=== PATIENT | female | born 1950 | race Caucasian/White ===

== ENCOUNTER 2021-07-18 13:53 | Emergency (ER) | payer MEDICARE, OTHER ==
[~2021-07-18] VITALS: Ht 157.5 cm; Wt 103.0 kg
[2021-07-18 13:59] VITALS: BP 135/59
[2021-07-18] MEDS ORDERED: CETI1SOL17 PO (14:18)
[2021-07-18] MEDS ORDERED: PRED20TA3 PO (14:18)
[2021-07-18] MEDS ORDERED: FAMO-136 PO (14:18)
[2021-07-18] MEDS ORDERED: FAMOTIDINE 20MG TAB PO ONE (14:30)
[2021-07-18] MEDS ORDERED: DEXAMETHASONE 4 MG TAB PO SCH (14:30)
== END 2021-07-18 14:42 | disposition home or self-care (01) ==
LOC: EDH 13:53
DX: L50.9 Urticaria, unspecified (principal); E78.00 Pure hypercholesterolemia, unspecified; I10 Essential (primary) hypertension; E66.9 Obesity, unspecified; Z79.52 Long term (current) use of systemic steroids; Z88.0 Allergy status to penicillin; Z68.41 Body mass index [BMI] 40.0-44.9, adult
CPT/HCPCS: 99283; J8540

== ENCOUNTER 2022-05-16 04:35 | Emergency (ER) | payer OTHER ==
[~2022-05-16] VITALS: Ht 157.5 cm; Wt 106.1 kg
[~2022-05-16 04:35] MED LIST: CETI1SOL17 PO; FAMO-136 PO; PRED20TA3 PO
[2022-05-16] MEDS ORDERED: IPRATROPIUM 0.5 MG/2.5 ML INH IH ONE ×3 (04:52→07:30)
[2022-05-16] MEDS ORDERED: ALBUTEROL 0.083% 2.5 MG/3 ML INH IH ONE ×3 (04:52→07:30)
[2022-05-16 04:59] LABS: BASOPHILS % (AUTO) 0.5 % (0.0-5.0); EOSINOPHILS % (AUTO) 7.1 % (0.0-8.0); HEMATOCRIT 39.2 % (36-48); LYMPHOCYTES % (AUTO) 18.9 % (21.0-51.0); MEAN CORPUSCULAR HGB CONC 33.2 g/dL (32.0-36.0); MEAN CORPUSCULAR VOLUME 87.3 fL (79-99); MONOCYTES % (AUTO) 6.6 % (3.0-13.0); NEUTROPHILS % (AUTO) 66.4 % (40.0-77.0); PLATELET COUNT (AUTO) 314 K/uL (130-400); RED BLOOD CELL COUNT(AUTO) 4.49 MIL/uL (4.00-5.50); RED CELL DISTRIBUTION WIDTH 13.9 % (11.0-15.5); WHITE BLOOD COUNT (AUTO) 12.9 K/uL (4.8-10.8)
[2022-05-16 05:20] LABS: ALBUMIN 3.4 g/dL (3.5-5.0); CREATININE 0.7 mg/dL (0.5-1.5); POTASSIUM 3.4 mmol/L (3.5-5.1); TOTAL PROTEIN, SERUM 7.2 g/dL (6.0-8.3)
[2022-05-16] MEDS ORDERED: DEXAMETHASONE SOD PHOSPHATE 4 MG/ML 1ML VIAL IVP ONE (05:30)
[2022-05-16] MEDS ORDERED: ALBU90AE2 IH (07:03)
[2022-05-16] MEDS ORDERED: METH4TAB3 PO (07:03)
[2022-05-16] MEDS ORDERED: IPRAHFA IH (07:03)
[2022-05-16 07:47] VITALS: BP 140/83
== END 2022-05-16 07:50 | disposition home or self-care (01) ==
LOC: EDH 04:35
DX: J44.1 Chronic obstructive pulmonary disease with (acute) exacerbation (principal); E78.00 Pure hypercholesterolemia, unspecified; I10 Essential (primary) hypertension; Z79.52 Long term (current) use of systemic steroids; Z20.822 Contact with and (suspected) exposure to COVID-19; Z88.0 Allergy status to penicillin
CPT/HCPCS: 99285; 96374; 71045; 87635; 84484; 80053; 85025; 87804 ×2; 36415; 94640 ×2; J1100; C9803

== ENCOUNTER → 2024-02-25 | Outpatient (CLI) | payer OTHER ==
[~2024-02-25] MED LIST changes: +ALBU90AE3 IH; +IPRAHFA IH; +METH4TAB3 PO
--- NOTE | 2024-02-25 13:40 | NUR ---
MBSS COMPLETED (OUTPATIENT). Deep non-transient penetrations before the swallow with thin liquids via cup sips with no cough response. Recommend regular solids, nectar thick liquids and pills whole with liquids as tolerated. Compensatory strategies: 1. sit upright during oral intake 2. small bites/sips 3. slow oral intake 4. extra dry swallows ICE CREAM DISPENSER reviewed results and recommendations with patient. ICE CREAM DISPENSER educated patient on risks and consequences of aspiration. Speech therapy warranted at this time as outpatient. ICE CREAM DISPENSER provided patient with a can of thickener and demonstrated how to reach nectar thick liquids. All questions answered. Addendum: 02/25/[address] FINESSE NEW Amended: Links added.
--- NOTE | 2024-02-25 14:41 | HMCIMG ---
MODIFIED BARIUM SWALLOW W CINE REASON: DYSPHAGIA, FEEDING DIFFICULTIES. COMPARISON: None TECHNIQUE: Modified barium swallow study was performed with referring speech therapist. FINDINGS: Please see procedure report by referring speech therapist. IMPRESSION: Modified barium swallow study.
== END | disposition home or self-care (01) ==
LOC: RAH 10:00
PROVIDERS: ATTEND Internal Medicine
DX: R13.12 Dysphagia, oropharyngeal phase (principal); R63.30 Feeding difficulties, unspecified
CPT/HCPCS: 74230; 92611

== ENCOUNTER 2024-05-12 12:43 | Emergency (ER) | payer OTHER ==
[~2024-05-12] VITALS: Ht 157.5 cm; Wt 97.1 kg
[~2024-05-12 12:43] MED LIST changes: +AMLO-258 PO; +ASPI-1443 PO; +BUDE0.5A3 IH; +CALC1CAP22 PO; +CARV12.511 PO; -CETI1SOL17 PO; +HYDR12.54 PO; +IPRA3AMP24 IH; +LOSA50TA64 PO; +LURA40TA2 PO; -METH4TAB3 PO; -PRED20TA3 PO; +ROSU10TA72 PO; +TRAZ-187 PO
[2024-05-12] MEDS ORDERED: CALCIUM GLUC 1GM/10ML VIAL IV PRN (13:00)
[2024-05-12] MEDS: 0.9%NACL 1000ML 1,000 ML IV ONE (13:12)
--- NOTE | 2024-05-12 13:20 | EKG ---
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
--- NOTE | 2024-05-12 13:42 | ERN ---
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 Patient reports dizziness, weakness, but denies any other associated symptoms at this time. Patient believes she might have double dosed on her blood pressure medications this morning [facility]. Patient does not recall the name of the blood pressure medica tions. 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 Allergies: Coded Allergies: Penicillins (Unverified Allergy, Unknown, 07/18/21) Home Meds Active Scripts Ipratropium/Albuterol Sulfate (Iprat-Albut 0.5-3(2.5) mg/3 ml) 0.5 Mg-3 Mg (2.5 Mg Base)/3 Ml Ampul.neb, 0 UDVIAL IH [id number], #60 INH 0 Refills q6h Prov:BECCA WU PAINTING MANAGER 05/05/24 Budesonide (Budesonide) 0.5 Mg/2 Ml Ampul.neb, 0.5 MG IH BIDRESP, #60 INH Prov:BECCA WU PAINTING MANAGER 05/05/24 Ipratropium [place] (Atrovent Hfa) 12.9 Gm Hfa.aer.ad, 200 GM IH TID, #1 INHALER Prov:PETRA DANIELLE MD 05/16/22 Albuterol Sulfate (Proair Digihaler) 90 Mcg Aer.pw.bas, 90 MCG IH TID, #1 INHALER Prov:PETRA DANIELLE MD 05/16/22 Famotidine (Pepcid) 20 Mg Tablet, 20 MG PO BID, #30 TAB Prov:HUMBERTO NOLASCO 07/18/21 Reported Medications Calcium Carbonate/Vitamin D3 (Calcium 600 + Vit D 400 Softgl) 600 Mg Calcium-10 Mcg (400 Unit) Capsule, 1 CAP PO BID for 30 Days, #60 CAP 0 Refills 05/02/24 Trazodone HCl (Trazodone HCl) 100 Mg Tablet, 1 TAB PO HS for 30 Days, #30 TAB 0 Refills 05/02/24 Hydrochlorothiazide (Hydrochlorothiazide) 12.5 Mg Tablet, 1 TAB PO DAILY for 30 Days, #30 TAB 0 Refills 05/02/24 Rosuvastatin Calcium (Rosuvastatin Calcium) 10 Mg Tablet, 20 MG PO HS, TAB 05/02/24 Aspirin (Aspirin EC) 81 Mg Tablet.dr, 81 MG PO DAILY, TAB 05/02/24 Carvedilol (Carvedilol) 12.5 Mg Tablet, 1 TAB PO BID for 30 Days, #60 TAB 0 Refills 05/02/24 Lurasidone HCl (Latuda) 40 Mg Tablet, 1 TAB PO HS for 30 Days, #30 TAB 0 Refills 05/02/24 Losartan Potassium (Losartan Potassium) 50 Mg Tablet, 50 MG PO BID, TAB 05/02/24 Amlodipine Besylate (Amlodipine Besylate) 10 Mg Tablet, 1 TAB PO DAILY for 30 Days, #30 TAB 0 Refills 05/02/24 Past Medical History Past Medical History: COPD, High Cholesterol, Hypertension, Other Additional Past Medical Hx: PTSD Surgical History: Other Surgical History Other: LUMPECTOMY Social History: Negative Review of System Dictation Constitutional: Positive for weakness, hypotension Negative for fever,chills, and weight loss Eyes: Negative for injury, pain,redness, and discharge ENT: Negative for injury,pain or swelling Cardiovascular: Negative for chest pain, palpitations, and edema Respiratory: Negative for shortness of breath, cough, and wheezing, Abdomen/GI: Negative for abdominal pain, nausea, vomiting, diarrhea, and constipation Back: Negative for injury and pain : Negative for injury, bleeding and discharge MS/Extremity: Negative for injury and deformity Skin: Negative for rash, and discoloration Neuro: Positive for dizziness Negative for headache, weakness, numbness, tingling, and seizure Psych: Negative for suicide ideation, homicidal ideation, and hallucinations Initial Vital Sign VS Vital Signs Date Time Temp Pulse Resp B/P (MAP) Pulse Ox O2 Delivery O2 Flow Rate FiO2 05/12/24 12:44 97.7 54 16 91/55 98 Room Air 0 05/12/24 14:01 21 Physical Exam Dictation General: awake, alert, NAD Head/Face: Normocephalic, atraumatic Eyes: PERRL, EOMI, vision at baseline ENT: oral cavity clear, TMs clear, no signs of infection Neck: Trachea midline, supple, no nuchal rigidity Cardiovascular: RRR, normal S1/S2, No MRGs, no JVD Respiratory: CTAB, no respiratory distress, No rales or wheezes Abdomen: Soft, non-tender, non-distended, normal bowel sounds, no guarding or rebound. Skin: Warm, dry, normal turgor, no rash MS/Extremity: Pulses equal, no cyanosis, neurovascular intact, FROM Neuro: COAx4, GCS 15, strength 5/5, CN 2-12 intact, normal cerebellar exam, normal gait, Psych: Normal behavior, mood, and affect normal Results (Laboratory/Radiology) Laboratory/Radiology Laboratory Tests Test 05/12/24 14:13 05/12/24 14:40 Prothrombin Time 10.4 SEC (9.6-11.6) Prothromb Time International Ratio <= 0.93 (0.85-1.15) Activated Partial Thromboplast Time 23.9 SEC (26.3-35.5) L Sodium Level 135 mmol/L (136-145) L Potassium Level 3.6 mmol/L (3.5-5.1) Chloride Level 101 mmol/L (101-111) Carbon Dioxide Level 23 mmol/L (21-32) Blood Urea Nitrogen 28 mg/dL (7-18) H Creatinine 1.2 mg/dL (0.5-1.0) H Glomerular Filtration Rate Calc 48 mL/min (>90) Random Glucose 87 mg/dL (70-105) Lactic Acid Level 2.7 mmol/L (0.8-2.5) H Total Calcium 8.7 mg/dL (8.5-10.1) Total Bilirubin 0.4 mg/dL (0.2-1.0) Direct Bilirubin 0.1 mg/dL (0.0-0.3) Aspartate Amino Transf (AST/SGOT) 16 U/L (10-37) Alanine Aminotransferase (ALT/SGPT) 23 U/L (12-78) Alkaline Phosphatase 62 U/L (50-136) Total Creatine Kinase 36 U/L (21-232) # Troponin I High Sensitivity 7 ng/L (4-50) Total Protein 6.3 g/dL (6.0-8.3) Albumin 2.8 g/dL (3.5-5.0) L White Blood Count 24.5 K/uL (4.8-10.8) H Red Blood Count 4.60 MIL/uL (4.00-5.50) Hemoglobin 13.6 g/dL (12.0-16.0) Hematocrit 42.0 % (36-48) Mean Corpuscular Volume 91.3 fL (79-99) Mean Corpuscular Hemoglobin 29.6 pg (27.0-33.0) Mean Corpuscular Hemoglobin Concent 32.4 g/dL (32.0-36.0) Red Cell Distribution Width 13.2 % (11.0-15.5) Platelet Count 307 K/uL (130-400) Mean Platelet Volume 10.6 fL (7.5-10.5) H Immature Granulocyte % (Auto) 1.3 % (0-1) H Neutrophils (%) (Auto) 66.1 % (40.0-77.0) Lymphocytes (%) (Auto) 22.8 % (21.0-51.0) Monocytes (%) (Auto) 8.5 % (3.0-13.0) Eosinophils (%) (Auto) 1.1 % (0.0-8.0) Basophils (%) (Auto) 0.2 % (0.0-5.0) Neutrophils # (Auto) 16.2 K/uL (1.8-7.7) H Lymphocytes # (Auto) 5.6 K/uL (1.0-4.8) H Monocytes # (Auto) 2.1 K/uL (0.1-1.0) H Eosinophils # (Auto) 0.26 K/uL (0.00-0.70) Basophils # (Auto) 0.05 K/uL (0.00-0.20) Absolute Immature Granulocyte (auto 0.33 K/uL (0-1) Segmented Neutrophils % 57 % (40-70) Band Neutrophils % 1 % (0-2) Lymphocytes % (Manual) 29 % (22-44) Monocytes % (Manual) 8 % (2-9) Eosinophils % (Manual) 3 % (1-6) Nucleated Red Blood Cells 0.0 % (0.0-0.19) Differential Comment MANUAL DIFFERENTIAL Reactive Lymphocytes 2 % (0-0) H White Cell Morphology Comment SMUDGE CELLS 1+ Platelet Morphology Comment ADEQUATE Red Blood Cell Morphology ANISO 1+ B-Type Natriuretic Peptide 26 pg/mL (0-100) Labs Reviewed?: Yes EKG Comment: EKG 05/12/2024 time 1:03 p.m. ventricular rate 50, SD 156, QRS D 79, QT 465. Sinus rhythm, probable left atrial enlargement, low voltage precordial leads. No STEMI. ED Course ED Course Orders Procedure Category Date Status Time 12 Lead Ekg Tracing- EKG 05/12/24 Complete Technical 12:49 Basic Metabolic Panel LAB 05/12/24 Complete 12:49 Blood Cult WILMAN 05/12/24 In Process 12:49 Hepatic Function Panel LAB 05/12/24 Complete 12:49 Creatine Kinase, Total LAB 05/12/24 Complete 12:49 Lactic Acid LAB 05/12/24 Complete 12:49 Pt And Ptt LAB 05/12/24 Complete 12:49 Troponin I High LAB 05/12/24 Complete Sensitivity 12:49 Urinalysis Profile LAB 05/12/24 Logged 12:49 Chest 1vw RAD 05/12/24 Resulted 12:49 0.9%Nacl 1000ml (Ns PHA 05/12/24 Complete 1000ml) 13:00 Calcium Gluc 1gm PHA 05/12/24 Complete (Calcium Gluc 1gm 13:00 Cbc With Differential LAB 05/12/24 Complete 14:36 B-Type Natriuretic LAB 05/12/24 Complete Peptide 14:36 Manual Differential LAB 05/12/24 Complete 14:40 Current Medications Medications (Trade) Dose Ordered Sig/[place] Route PRN Reason Start Time Stop Time Status Last Admin Dose Admin Calcium Gluconate (Calcium Gluc 1gm Vial) 1 gm ONCE PRN IV INCREASED BLOOD PRESSURE 05/12/24 13:00 05/12/24 17:28 DC Sodium Chloride 1,000 ml @ 0 mls/hr ONCE ONCE IV 05/12/24 13:00 05/12/24 13:01 DC 05/12/24 13:12 Vital Signs Date Time Temp Pulse Resp B/P (MAP) Pulse Ox O2 Delivery O2 Flow Rate FiO2 05/12/24 16:34 98.6 62 16 122/66 99 Room Air* 0 21 05/12/24 15:18 98.6 60 16 123/63 99 Room Air* 0 21 05/12/24 14:01 60 16 129/65 99 Room Air* 0 21 05/12/24 12:44 97.7 54 16 91/55 98 Room Air 0 HEART Score Response (Comments) Value History: Low suspicion (0) 0 EKG: Normal 0 Age: > 65yrs (+2) 2 Risk Factors: 1-2 risk factors (+1) 1 Initial Troponin: Normal limit (0) 0 HEART Score Risk: Low Risk for MACE (1-3) Total 3 Medical Decision Making MDM MDM: Differential diagnosis: Hypotension, weakness, dehydration Patient was alert and oriented prior to leaving, advised patient to stay to rule out reasons for hypotension and weakness, patient refused. Rationale: Tests considered and ordered secondary to shared decision making include: labs, ECG and radiology Risk of complication and/or morbidity or mortality of patient management: None Medications-Per medication reconciliation Need for hospitalization: Patient does meet criteria for hospitalization. Need for emergency major/minor surgery: No There are no social concerns with this patient. I independently interpreted the test that were performed, results were reviewed by me and considered findings on radiology if ordered. Medical management and examination interpretation discussions were had by me with other qualified healthcare professionals as indicated for the patient's care. DX & DISP Disposition: AMA Departure Impression: Primary Impression: Weakness Additional Impression: Hypotension Condition: Against Medical Advice Referrals: BELKIS EDEN (PCP) ALEX SYLVESTER MD May 12, 2024 13:42
--- NOTE | 2024-05-12 14:24 | HMCIMG ---
Exam Type: CHEST 1VW Clinical Information: gbw Comparison: None Findings: The lungs are clear of infiltrates. The heart is normal in size. The bony and soft tissue structures of the chest are unremarkable. Impression: Clear lungs.
[2024-05-12 14:35] LABS: INR <= 0.93 (0.85-1.15); PROTHROMBIN TIME 10.4 SEC (9.6-11.6)
[2024-05-12 14:36] LABS: PARTIAL THROMBOPLASTIN TIME 23.9 SEC (26.3-35.5)
[2024-05-12 14:42] LABS: CREATININE 1.2 mg/dL (0.5-1.0); POTASSIUM 3.6 mmol/L (3.5-5.1)
[2024-05-12 14:47] LABS: BASOPHILS # (AUTO) 0.05 K/uL (0.00-0.20); BASOPHILS % (AUTO) 0.2 % (0.0-5.0); EOSINOPHILS # (AUTO) 0.26 K/uL (0.00-0.70); EOSINOPHILS % (AUTO) 1.1 % (0.0-8.0); IMMATURE GRANULOCYTE ABSOLUTE 0.33 K/uL (0-1); LYMPHOCYTES # (AUTO) 5.6 K/uL (1.0-4.8); LYMPHOCYTES % (AUTO) 22.8 % (21.0-51.0); MEAN CORPUSCULAR HEMOGLOBIN 29.6 pg (27.0-33.0); MEAN CORPUSCULAR HGB CONC 32.4 g/dL (32.0-36.0); MEAN CORPUSCULAR VOLUME 91.3 fL (79-99); MONOCYTES # (AUTO) 2.1 K/uL (0.1-1.0); MONOCYTES % (AUTO) 8.5 % (3.0-13.0); NEUTROPHILS # (AUTO) 16.2 K/uL (1.8-7.7); NEUTROPHILS % (AUTO) 66.1 % (40.0-77.0); PLATELET COUNT (AUTO) 307 K/uL (130-400); RED CELL DISTRIBUTION WIDTH 13.2 % (11.0-15.5); WHITE BLOOD COUNT (AUTO) 24.5 K/uL (4.8-10.8)
[2024-05-12 14:54] LABS: ALBUMIN 2.8 g/dL (3.5-5.0); BILIRUBIN,DIRECT 0.1 mg/dL (0.0-0.3); BILIRUBIN,TOTAL 0.4 mg/dL (0.2-1.0); TOTAL PROTEIN, SERUM 6.3 g/dL (6.0-8.3)
--- NOTE | 2024-05-12 15:10 | NUR ---
took over patient at this time
[2024-05-12 15:29] LABS: B-TYPE NATRIURETIC PEPTIDE 26 pg/mL (0-100)
[2024-05-12 16:08] LABS: BAND NEUTROPHILS % (MANUAL) 1 % (0-2); EOSINOPHILS % (MANUAL) 3 % (1-6); LYMPHOCYTES % (MANUAL) 29 % (22-44); MAN.DIFF COMMENT-IMPRESSION MANUAL DIFFERENTIAL; MONOCYTES % (MANUAL) 8 % (2-9); PLATELET MORPHOLOGY COMMENT ADEQUATE; REACTIVE LYMPHOCYTES 2 % (0-0); SEGMENTED NEUTROPHILS % 57 % (40-70); TOTAL CELLS COUNTED 100; WBC MORPHOLOGY SMUDGE CELLS 1+
[2024-05-12 16:34] VITALS: BP 122/66; PULSE 62; RESP 16; TEMP 98.6; O2SAT 99
--- NOTE | 2024-05-12 16:40 | NUR ---
AT THIS TIME PATIENT IS STATING THAT SHE WOULD LIKE TO GO HOME, RN EDUCATED PATIENT ON THE CONS OF LEAVING AGAINST MEDICAL ADVICE, AT THIS TIME PATIENT IS STATING THAT HER MIND IS MADE UP AND WOULD LIKE TO LEAVE. ED DOCTOR MADE AWARE. ALL PAPERWORK PROVIDED FOR PATIENT, AT BEDSIDE.
== END 2024-05-12 16:45 | disposition left against medical advice (07) ==
LOC: EDH 12:43
DX: R53.1 Weakness (principal); I95.9 Hypotension, unspecified; E78.00 Pure hypercholesterolemia, unspecified; I10 Essential (primary) hypertension; J44.9 Chronic obstructive pulmonary disease, unspecified; Z79.82 Long term (current) use of aspirin; Z79.899 Other long term (current) drug therapy; Z88.0 Allergy status to penicillin
CPT/HCPCS: 99285; 96360; 71045; 82550; 80076; 84484; 80048; 83880; 85025; 85610; 85730; 87040 ×2; 87086; 87186; 83605; 36415; 93005; J7030